=== PATIENT | female | born 1950 | race Caucasian/White ===

== ENCOUNTER → 2016-11-09 | Outpatient (CLI) | payer BC ==
--- NOTE | 2016-11-16 10:34 | MAM ---
EXAM DESCRIPTION: 3D Diagnostic, Bilateral CLINICAL HISTORY: 66 yearsFemaleSCREENING. Postmenopausal. COMPARISON: Baseline study at this facility. No prior reports available. TECHNIQUE: Bilateral CC and MLO projection full-field images, 3-D tomosynthesis digital mammographic technique. Also bilateral synthesized CC/ MLO full-field images. CAD not utilized. FINDINGS: The breast parenchymal density pattern is: Scattered areas of fibroglandular density. No skin thickening or nipple retraction intramammary lymph nodes in the posterior third of the upper-outer quadrant of the left breast and the posterior third of the upper inner quadrant of the same breast. Bilateral solitary microcalcifications. No focal, stellate mass or density, focal asymmetry , and no suspicious microcalcifications bilaterally. IMPRESSION: BI-RADS CATEGORY: 2 - BENIGN FINDINGS. FOLLOW UP: Routine digital bilateral screening, one year interval from October 2016. Written communication explaining the findings and follow-up, will be mailed to the patient and referring health care provider. According to the [employer], yearly mammograms are recommended starting at age 40 and continuing as long as a woman is in good health. Any breast change noted on a breast self-exam should be reported promptly to the patient's healthcare provider. Breast MRI is recommended for women with an approximately 20-25% or greater lifetime risk of breast cancer, including women with a strong family history of breast or ovarian cancer and women who have been treated for Hodgkin's disease. A negative mammographic report should not delay tissue diagnosis in patients with significant clinical history or physical findings. Extremely dense breast tissue limits the sensitivity of digital mammography. Electronically signed by: Fredrick Tripp MD 11/16/2016 10:33 AM CDT Workstation: [id number]
== END ==
LOC: MAMMO 10:18
PROVIDERS: ATTEND Family Medicine
DX: Z12.31 Encounter for screening mammogram for malignant neoplasm of breast (principal)

== ENCOUNTER → 2017-03-28 | Outpatient (CLI) | payer BC ==
--- NOTE | 2017-03-30 10:15 | CT ---
EXAM DESCRIPTION: Chest w/Contrast CT. CLINICAL HISTORY: COUGH COMPARISON: None. TECHNIQUE: Spiral-axial scans at 5.0 mm intervals through the lungs and thorax with IV contrast. Oral and sagittal 2.0 Mm reconstructions. No adverse reactions. Total Exam DLP: 554.59 mGy-cm. This exam was performed according to our departmental dose-optimization program which includes automated exposure control, adjustment of the mA and/or kV according to patient size and/or use of iterative reconstruction technique; to reduce radiation dose to as low as reasonably achievable (ALARA). FINDINGS: No abnormal nodules or infiltrates. No masses. No pleural effusion or pneumothorax. Left lobe of the thyroid gland is visualized with enhancement right lobe is not well seen. No soft tissue masses at the base of the neck. No axillary adenopathy. No soft tissue masses or enlarged lymph nodes in the mediastinum and hilum. Small hiatal hernia. No free fluid or free air in the included subdiaphragmatic peritoneal space. Included kidneys show a large cyst bilaterally. Normal size and enhancement of the adrenal glands and spleen. No definite gallbladder not seen. Included pancreas unremarkable. Exaggerated thoracic kyphosis with spondylosis at multiple levels and mild dextroscoliosis. Spondylosis in the included segments of the lower cervical spine and upper lumbar spine. No bone destruction. IMPRESSION: 1. Lungs are well-inflated with no infiltrates or nodules. No pleural effusion or pneumothorax. 2. No adenopathy in the hilum mediastinum. No soft tissue masses. 3. Diffuse spondylosis lower cervical spine to the upper lumbar spine with exaggerated thoracic kyphosis. No compression type fractures. 4. Partial visualization of the bilateral kidneys showing large cysts. Electronically signed by: Fredrick Tripp MD 03/30/2017 10:14 AM [facility]
== END ==
LOC: LAB.O 15:16
PROVIDERS: ATTEND Family Medicine
DX: R05 Cough (principal)

== ENCOUNTER 2017-03-31 21:59 | Emergency (ER) | payer BC ==
[2017-03-31 22:14] VITALS: TEMP 97.6; O2SAT 96
[2017-03-31] MEDS ORDERED: SODIUM CHLORIDE 0.9% 1000ML 1,000 ML IVS ONE (22:25)
[2017-03-31] MEDS ORDERED: METOCLOPRAMIDE HCL INJ 10 MG/2 ML VIAL IV ONE (22:26)
[2017-03-31] MEDS ORDERED: diphenhydrAMINE HCL 50 MG/ML VIAL IV ONE (22:26)
[2017-03-31] MEDS ORDERED: KETOROLAC TROMETHAMINE INJ 30 MG/ML VIAL IV ONE (22:26)
--- NOTE | 2017-03-31 22:27 | ED.PDOC ---
History of Present Illness - General Chief Complaint: General Stated Complaint: visual disturbances Time Seen by Provider: 03/31/17 22:25 Source: patient, RN notes reviewed, Vital Signs reviewed Additional Information: Pt reports some bright and dark spots when looking with right eye since this am. Otherwise, no symptoms. She was concerned for a retinal detachment. - History of Present Illness Timing/Duration: 24 hours Improving Factors: nothing Worsening Factors: nothing Associated Symptoms: denies symptoms Allergies/Adverse Reactions: Allergies NO KNOWN ALLERGY Allergy (Verified 03/31/17 22:10) Home Medications: Ambulatory Orders Cetirizine HCl [ZyrTEC] 10 mg PO BID 03/31/17 Dexlansoprazole [Dexilant] 60 mg PO DAILY 03/31/17 Fluticasone-Salmeterol [Advair Hfa] 2 aer IN BID 03/31/17 Gabapentin [Neurontin] 300 mg PO BID 03/31/17 Guaifenesin [Eq Mucus ER] 600 mg PO 0700 03/31/17 Mometasone Furoate (Inhalation [Asmanex 120 Metered Doses] 220 mcg IN BID Verapamil HCl [Verapamil HCl Sr] 240 mg PO BEDTIME 03/31/17 Zafirlukast [Accolate] 20 mg PO BID 03/31/17 Review of Systems - Review of Systems Constitutional: States: no symptoms reported EENTM: States: see HPI Respiratory: States: no symptoms reported Cardiology: States: no symptoms reported Gastrointestinal/Abdominal: States: no symptoms reported Genitourinary: States: no symptoms reported Musculoskeletal: States: no symptoms reported Skin: States: no symptoms reported Neurological: States: no symptoms reported Endocrine: States: no symptoms reported Hematologic/Lymphatic: States: no symptoms reported Past Medical History (General) - Patient Medical History Hx Seizures: No Hx Stroke: No Hx Dementia: No Hx Asthma: Yes Hx of COPD: Yes Hx Cardiac Disorders: No Hx Congestive Heart Failure: No Hx Pacemaker: No Hx Hypertension: Yes Hx Thyroid Disease: No Hx Diabetes: No Hx Gastroesophageal Reflux: Yes Hx Renal Disease: No Hx Cancer: No Hx of HIV: No Hx Hepatitis C: No Hx MRSA: No Surgical History: tonsillectomy, Hysterectomy - Vaccination History Hx Tetanus, Diphtheria Vaccination: Yes Hx Influenza Vaccination: Yes Hx Pneumococcal Vaccination: Yes Immunizations Up to Date: Yes - Social History Hx Tobacco Use: No Hx Alcohol Use: Yes Family Medical History - Family History Mother Family History: No Known Living Status: Unknown Physical Exam - Physical Exam General Appearance: Alert, Comfortable, No apparent distress, Well Developed, Well Groomed, Well Hydrated, Well Nourished Eye Exam: bilateral normal Ears, Nose, Throat: normal ENT inspection, normal pharynx Neck: non-tender, full range of motion, supple Respiratory: no respiratory distress, no accessory muscle use Cardiovascular/Chest: regular rate, rhythm Extremity: normal range of motion, non-tender, normal inspection 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 03/31/17 23:41 BP did come down with rest and REIS cocktail. - Results/Orders Results/Orders: 03/31/17 22:45 ESR [ERYTHROCYTE SEDIMENTATION RATE] Stat Laboratory Results - last 24 hr 03/31/17 03/31/17 03/31/17 22:45 22:45 22:45 WBC 5.1 RBC 4.58 Hgb 14.1 Hct 41.1 MCV 89.8 MCH 30.7 MCHC 34.2 RDW 13.5 Plt Count 236 MPV 7.7 Absolute Neuts (auto) 3.20 Absolute Lymphs (auto) 1.30 Absolute Monos (auto) 0.60 Absolute Eos (auto) 0.10 Absolute Basos (auto) 0.00 Neutrophils % 61.4 Lymphocytes % 25.2 Monocytes % 10.9 H Eosinophils % 2.0 Basophils % 0.5 Sodium 142 Potassium 3.8 Chloride 106 Carbon Dioxide 29 Anion Gap 10.8 L BUN 18 Creatinine 0.90 BUN/Creatinine Ratio 20.0 Random Glucose 89 Serum Osmolality 284.5 Calcium 9.1 Total Bilirubin 0.2 AST 52 H ALT 17 Alkaline Phosphatase 57 C-Reactive Protein 0.7 Serum Total Protein 6.7 Albumin 3.9 Globulin 2.8 Albumin/Globulin Ratio 1.4 Departure - Departure Clinical Impression: Transient visual disturbance Time of Disposition: 23:48 Disposition: Discharge to Home or Self Care Condition: Good Departure Forms: ED Discharge - Pt. Copy, Patient Portal Self Enrollment Referrals: Michel Ware MD [Primary Care Provider] - 1-5 Days Home Medications: Ambulatory Orders Cetirizine HCl [ZyrTEC] 10 mg PO BID 03/31/17 Dexlansoprazole [Dexilant] 60 mg PO DAILY 03/31/17 Fluticasone-Salmeterol [Advair Hfa] 2 aer IN BID 03/31/17 Gabapentin [Neurontin] 300 mg PO BID 03/31/17 Guaifenesin [Eq Mucus ER] 600 mg PO 0700 03/31/17 Mometasone Furoate (Inhalation [Asmanex 120 Metered Doses] 220 mcg IN BID Verapamil HCl [Verapamil HCl Sr] 240 mg PO BEDTIME 03/31/17 Zafirlukast [Accolate] 20 mg PO BID 03/31/17 Additional Instructions: Return to ER if symptoms recur. Follow-up with Primary Care Provider within 5 to 7 days to reassess. Ensure yearly Assorter assessment with dilated retinal exam.
[2017-03-31 23:50] VITALS: BP 149/92
== END 2017-03-31 23:50 | disposition home or self-care (01) ==
LOC: ER 21:59
DX: H53.8 Other visual disturbances (principal); J44.9 Chronic obstructive pulmonary disease, unspecified; I10 Essential (primary) hypertension
CPT/HCPCS: 36415; 80053; 85025; 85651; 86140; J1200; J1885; J2765; J7030

== ENCOUNTER → 2017-10-04 | Outpatient (CLI) | payer MEDICARE, OTHER | LOC: GMAJ 14:40 | PROVIDERS: ATTEND Family Medicine | DX: R21 Rash and other nonspecific skin eruption (principal) ==

== ENCOUNTER → 2017-12-12 | Outpatient (CLI) | payer MEDICARE, OTHER ==
--- NOTE | 2017-12-12 15:37 | US ---
EXAM DESCRIPTION: Breast,Left: Ultrasound CLINICAL HISTORY: 67 yearsFemaleABD MAMMO COMPARISON: Digital diagnostic mammogram left breast on this visit. TECHNIQUE: Transcutaneous scanning of the left breast utilizing franco-scale and Doppler modes. Scanning performed by the civil engineer's aide and Dr. Tripp. FINDINGS: Scanning of the upper outer quadrant of the left breast with emphasis on the 1000 clock position, 5 cm from the nipple. Hypoechoic mass with smooth margins and minimal central echogenicity measuring 6.8 x 5.6 mm. Parallel orientation with minimal posterior shadowing. Nonvascular. Most likely a lymph node. No other distinct solid mass. No distinct cyst. No parenchymal edema or large calcifications. No oral lying skin changes. No abnormal vascularity. IMPRESSION: 1. Bi-Rads Category 2: Benign. 2. Please refer to digital diagnostic mammography of the left breast on this visit. The FINDINGS and the FOLLOW-UP plan were reviewed in person with the patient after the examination. Written communication explaining the IMPRESSION and FOLLOW-UP will be mailed to the patient and referring care provider. Electronically signed by: Fredrick Tripp MD 12/12/2017 3:36 PM CDT
--- NOTE | 2017-12-13 11:34 | MAM ---
EXAM DESCRIPTION: 3D Diagnostic, Left: Digital Mammography CLINICAL HISTORY: 67 yearsFemaleABNORMAL MAMMO focal asymmetry medial third of the left breast upper outer quadrant at 930 clock position, 5 cm from the nipple.. COMPARISON: Screening bilateral digital breast tomosynthesis 11/20/2017.. . Targeted left breast ultrasound following this examination. TECHNIQUE: Left breast LM projection full-field images, digital mammographic tomosynthesis technique. Left breast full-field 2-D MLO projection. CAD not utilized. FINDINGS: The breast parenchymal density pattern is: Scattered areas of fibroglandular density. No skin thickening or nipple retraction stable nodular density lateral left breast. Focal asymmetry not as well seen on the left lateral medial tomosynthesis images. Ultrasound: Scanning of the upper outer quadrant of the left breast with emphasis on the 1000 clock position, 5 cm from the nipple. Hypoechoic mass with smooth margins and minimal central echogenicity measuring 6.8 x 5.6 mm. Parallel orientation with minimal posterior shadowing. Nonvascular. Most likely a lymph node. No other distinct solid mass. No distinct cyst. No parenchymal edema or large calcifications. No oral lying skin changes. No abnormal vascularity. IMPRESSION: Benign exam BIRAD CATEGORY: 2 BENIGN FINDINGS RECOMMENDATIONS: FOLLOW UP: Return to routine digital bilateral screening, one year interval from November 2017. The FINDINGS and the FOLLOW-UP plan were reviewed in person with the patient after the examination. Written communication explaining the IMPRESSION and FOLLOW-UP will be mailed to the patient and referring care provider. According to the [employer], yearly mammograms are recommended starting at age 40 and continuing as long as a woman is in good health. Any breast change noted on a breast self-exam should be reported promptly to the patient's healthcare provider. Breast MRI is recommended for women with an approximately 20-25% or greater lifetime risk of breast cancer, including women with a strong family history of breast or ovarian cancer and women who have been treated for Hodgkin's disease. A negative mammographic report should not delay tissue diagnosis in patients with significant clinical history or physical findings. Extremely dense breast tissue limits the sensitivity of digital mammography. Electronically signed by: Fredrick Tripp MD 12/13/2017 11:32 AM CDT
== END ==
LOC: MAMMO 11:08
PROVIDERS: ATTEND Family Medicine
DX: R92.8 Other abnormal and inconclusive findings on diagnostic imaging of breast (principal)
CPT/HCPCS: 76641; 77065; G0279

== ENCOUNTER → 2018-01-29 | Outpatient (CLI) | payer MEDICARE, OTHER | LOC: GMAHI 16:48 | PROVIDERS: ATTEND Nurse Practitioner Family | DX: N30.00 Acute cystitis without hematuria (principal) ==

== ENCOUNTER → 2018-05-09 | Outpatient (CLI) | payer MEDICARE, OTHER | LOC: GMAJ 14:19 | PROVIDERS: ATTEND Family Medicine | DX: R94.5 Abnormal results of liver function studies (principal) ==

== ENCOUNTER → 2018-05-13 | Outpatient (CLI) | payer MEDICARE, OTHER ==
--- NOTE | 2018-05-13 12:13 | US ---
EXAM DESCRIPTION: Abdomen,Complete: Ultrasound. CLINICAL HISTORY: R94.5. Prior cholecystectomy. COMPARISON: None Available. TECHNIQUE: Transabdominal scannin-dimensional and Doppler modes. FINDINGS: Gallbladder: Surgically removed. No fluid in the gallbladder fossa. Nontender during transducer pressure. Common bile duct: 5 mm is normal caliber. Liver: Long axis right lobe 14.0 cm. Normal echogenicity. Normal caliber ducts. Normal caliber portal vein with hepatopedal flow. Smooth capsule with no ascites. Pancreas: Included segments normal echogenicity. Duct not seen.. Abdominal aorta: Normal caliber from the proximal segment to the distal bifurcation. IVC: visualized; normal caliber. Spleen normal echogenicity; long axis measurement is 8.7 cm. Right kidney: 11.7 cm long axis. 2 anechoic cysts with well-defined yusuf and posterior acoustic enhancement upper pole right kidney 1.2 and 1.9 cm diameter versus septated 2.0 cm cyst. 5.7 x 4.7 x 4.4 cm thin-walled circumscribed anechoic cyst with posterior acoustic enhancement and wall thickening/calcification. Not vascular. No hydronephrosis or perinephric fluid. Left kidney: 12 cm long axis. Anechoic thin-walled circumscribed 7 x 7.2 x 6.5 cm cyst. No hydronephrosis or perinephric fluid.. IMPRESSION: 1. Gallbladder surgically removed. No fluid in the gallbladder fossa. Nontender. 2. Normal ultrasound of the liver. Pancreas is unremarkable. 3. Right kidney but multiple cysts. Largest cyst in the mid kidney with wall thickening/calcification. Nonvascular. No internal echoes. 4. Simple 7.2 cm cyst left kidney, otherwise unremarkable. Normal caliber of the IVC and abdominal aorta. Spleen is unremarkable. Electronically signed by: Fredrick Tripp MD 05/13/2018 12:12 PM [employer]
== END ==
LOC: US 08:17
PROVIDERS: ATTEND Family Medicine
DX: R94.5 Abnormal results of liver function studies (principal); Z90.49 Acquired absence of other specified parts of digestive tract; N28.1 Cyst of kidney, acquired

== ENCOUNTER → 2018-05-27 | Outpatient (CLI) | payer MEDICARE, OTHER ==
--- NOTE | 2018-05-27 12:08 | CT ---
EXAM DESCRIPTION: Abdomen w/o Contrast CLINICAL HISTORY: 67 years, Female, CYST OF KIDNEY COMPARISON: Ultrasound abdomen May 13, 2018, CT chest March 28, 2017 TECHNIQUE: CT of the abdomen is performed according to our non contrast protocol. FINDINGS: The lung bases are clear. Heart size is normal. Moderate pericardial effusion is present which is new compared to previous study. Small hiatal hernia behind the heart. Liver, spleen, and pancreas are unremarkable. Adrenal glands appear normal. The right kidney contains a cyst projecting off the upper pole which measures 2.6 cm in diameter and 12 Hounsfield units in density. Another small cyst anteriorly measures 1 cm. The larger cyst in the anterolateral mid right kidney measures 5.8 cm. Question small hemorrhagic cyst posterior inferior right kidney 8 mm. Upper pole and larger lateral cysts were seen on previous study. Small calculus in the posterior mid to lower right kidney measures 2 mm. No obstructive uropathy. The left kidney is anomalously rotated. Large cystic lesion of the inferior aspect of the left kidney measures 7.7 cm in diameter with a density of 9 Hounsfield units. Previously this measured approximately 6.8 cm. No left renal stones. Small bowel loops appear normal in caliber with normal wall thickness. There is no lymphadenopathy, inflammation, or free fluid observed. Mild leftward scoliotic curvature of the lumbar spine. Coronal and sagittal reformatted images confirm the findings. Advanced degenerative disc disease is seen in the lower thoracic and lumbar spine IMPRESSION: 2 mm nonobstructing right renal calculus. Bilateral renal cysts. Small pericardial effusion. This exam was performed according to our departmental dose-optimization program, which includes automated exposure control, adjustment of the mA and/or kV according to patient size and/or use of iterative reconstruction technique. Total DLP equals 407.76 mGycm. 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
== END ==
LOC: CT 08:05
PROVIDERS: ATTEND Family Medicine
DX: N28.1 Cyst of kidney, acquired (principal); N20.0 Calculus of kidney; I31.3 Pericardial effusion (noninflammatory)

== ENCOUNTER 2018-11-04 21:17 | Emergency (ER) | payer MEDICARE, OTHER ==
[2018-11-04 21:33] VITALS: TEMP 97.4; O2SAT 99
--- NOTE | 2018-11-04 21:49 | RAD ---
EXAM: XR Left Foot, 2 Views CLINICAL HISTORY: 68 years old and is Female; twisted foot TECHNIQUE: Frontal and lateral views of the left foot. COMPARISON: No relevant prior studies available. FINDINGS: Limitations: None. Bones/joints: Minimal narrowing of the interphalangeal joints. No fracture. No dislocation. Soft tissues: Unremarkable. No radiopaque foreign body. IMPRESSION: No acute findings. Electronically signed by: Rebecca Littlejohn MD 11/04/2018 9:46 PM CDT
--- NOTE | 2018-11-04 21:54 | ED.PDOC ---
History of Present Illness - General Chief Complaint: Lower Extremity Injury Stated Complaint: rolled left ankle causing pain Time Seen by Provider: 11/04/18 21:31 Source: patient Exam Limitations: no limitations - History of Present Illness Initial Comments: the patient is a 68-year-old female presenting to the emergency room secondary to left lateral foot pain after twisting her foot earlier in the day. She always has some mild chronic peripheral edema according to her since starting a new blood pressure medicine. Pain is lateral on the foot. There is pain over the fifth metatarsal. No obvious deformity otherwise. No pain over the medial or lateral malleolus. No pain anterior to the ankle. No obvious laxity of the ankle. She does appear to be neurovascularly preserved. Timing/Duration: 4-6 hours Severity: mild Improving Factors: immobilization Worsening Factors: movement Associated Symptoms: denies symptoms Allergies/Adverse Reactions: Allergies NO KNOWN ALLERGY Allergy (Verified 03/31/17 22:10) Home Medications: Ambulatory Orders Cetirizine HCl [ZyrTEC] 10 mg PO BID 03/31/17 Dexlansoprazole [Dexilant] 60 mg PO DAILY 03/31/17 Fluticasone-Salmeterol [Advair Hfa] 2 aer IN BID 03/31/17 Gabapentin [Neurontin] 300 mg PO BID 03/31/17 Guaifenesin [Eq Mucus ER] 600 mg PO 0700 03/31/17 Mometasone Furoate (Inhalation [Asmanex 120 Metered Doses] 220 mcg IN BID 1 06/01/16 Verapamil HCl [Verapamil HCl Sr] 240 mg PO BEDTIME 03/31/17 Zafirlukast [Accolate] 20 mg PO BID 03/31/17 Review of Systems - Review of Systems Constitutional: States: no symptoms reported EENTM: States: no symptoms reported Respiratory: States: no symptoms reported Cardiology: States: no symptoms reported Gastrointestinal/Abdominal: States: no symptoms reported Genitourinary: States: no symptoms reported Musculoskeletal: States: see HPI Skin: States: no symptoms reported Neurological: States: no symptoms reported Endocrine: States: no symptoms reported All other Systems: No Change from Baseline Past Medical History (General) - Patient Medical History Hx Seizures: No Hx Stroke: No Hx Dementia: No Hx Asthma: Yes Hx of COPD: Yes Hx Cardiac Disorders: No Hx Congestive Heart Failure: No Hx Pacemaker: No Hx Hypertension: Yes Hx Thyroid Disease: No Hx Diabetes: No Hx Gastroesophageal Reflux: Yes Hx Renal Disease: No Hx Cancer: No Hx of HIV: No Hx Hepatitis C: No Hx MRSA: No Surgical History: tonsillectomy, Hysterectomy, other - Vaccination History Hx Tetanus, Diphtheria Vaccination: Yes Hx Influenza Vaccination: Yes Hx Pneumococcal Vaccination: Yes - Social History Hx Tobacco Use: No Hx Alcohol Use: Yes Family Medical History - Family History Mother Family History: No Known Living Status: Unknown Physical Exam - Physical Exam General Appearance: Alert, Comfortable, No apparent distress Eye Exam: bilateral normal Ears, Nose, Throat: hearing grossly normal, normal ENT inspection Neck: full range of motion, supple Respiratory: no respiratory distress, no accessory muscle use Cardiovascular/Chest: normal peripheral pulses, other - regular rate Peripheral Pulses: radial,right: 2+, radial,left: 2+, dorsalis pedis,right: 2+, dorsalis pedis,left: 2+ Rectal Exam: deferred Back Exam: no CVA tenderness, no vertebral tenderness Extremity: normal range of motion, no calf tenderness, normal capillary refill, pedal edema - +1 edema to bilateral lower extremities little more on the leftthan right 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 Progress - Progress Progress: 11/04/18 21:55 the patient is a 68-year-old female presenting to the emergency room secondary to twisting her left foot earlier today. She appears to have sustained a lateral foot sprain. No evidence of fracture dislocation was seen on x-ray. She needs to ambulate carefully prevent further injury and preferably wear some form of a hard soled shoe for the next few weeks. Motrin can be used for discomfort. ER warnings were given. Keep routine follow-up with primary care doctor. Departure - Departure Clinical Impression: Sprain of left foot Qualifiers: Encounter type: initial encounter Qualified Code(s): S93.602A - Unspecified sprain of left foot, initial encounter Disposition: Discharge to Home or Self Care Condition: Fair Departure Forms: ED Discharge - Pt. Copy, Patient Portal Self Enrollment Instructions: Foot Sprain (DC) Diet: regular diet Activity: increase activity as tolerated Referrals: Michel Ware MD [Primary Care Provider] - 1-2 Weeks Home Medications: Ambulatory Orders Cetirizine HCl [ZyrTEC] 10 mg PO BID 03/31/17 Dexlansoprazole [Dexilant] 60 mg PO DAILY 03/31/17 Fluticasone-Salmeterol [Advair Hfa] 2 aer IN BID 03/31/17 Gabapentin [Neurontin] 300 mg PO BID 03/31/17 Guaifenesin [Eq Mucus ER] 600 mg PO 0700 03/31/17 Mometasone Furoate (Inhalation [Asmanex 120 Metered Doses] 220 mcg IN BID 03/31/17 Verapamil HCl [Verapamil HCl Sr] 240 mg PO BEDTIME 03/31/17 Zafirlukast [Accolate] 20 mg PO BID 03/31/17 Additional Instructions: the patient is a 68-year-old female presenting to the emergency room secondary to twisting her left foot earlier today. She appears to have sustained a lateral foot sprain. No evidence of fracture dislocation was seen on x-ray. She needs to ambulate carefully prevent further injury and preferably wear some form of a hard soled shoe for the next few weeks. Motrin can be used for discomfort. ER warnings were given. Keep routine follow-up with primary care doctor.
[2018-11-04] MEDS ORDERED: ACETAMINOPHEN-CAFF-BUTALBITAL 1 EA TAB PO ONE (21:57)
[2018-11-04 22:12] VITALS: BP 142/90
== END 2018-11-04 22:12 | disposition home or self-care (01) ==
LOC: ER 21:17
DX: S93.602A Unspecified sprain of left foot, initial encounter (principal); J44.9 Chronic obstructive pulmonary disease, unspecified; I10 Essential (primary) hypertension; K21.9 Gastro-esophageal reflux disease without esophagitis; X50.9XXA Other and unspecified overexertion or strenuous movements or postures, initial encounter; Z79.899 Other long term (current) drug therapy; Y92.9 Unspecified place or not applicable

== ENCOUNTER → 2018-12-25 | Outpatient (CLI) | payer MEDICARE, OTHER ==
--- NOTE | 2018-12-30 09:33 | MAM ---
EXAM DESCRIPTION: 3D Screening BILATERAL : Digital Mammography. CLINICAL HISTORY: 68 years Female Screening . No complaints. No personal or family history of breast cancer. Childbirth. Postmenopausal. Currently on HRT. Lifetime risk of developing breast cancer (Tyrer-Cuzick model)(%): 6.7. COMPARISON: Bilateral screening digital breast tomosynthesis 11/20/2017.. Diagnostic tomosynthesis and ultrasound left breast 12/12/2017. TECHNIQUE: Bilateral CC and MLO projection full-field images, digital tomosynthesis mammographic technique. Bilateral digital 2-D full-field MLO images. CAD not available for tomosynthesis or 2-D images. FINDINGS: The breast parenchymal density pattern is: Scattered areas of fibroglandular density. No skin thickening or nipple retraction. Bilateral solitary microcalcifications. Bilateral skin calcifications. Stable left breast intramammary lymph nodes. No new focal, stellate mass or density, focal asymmetry , and no suspicious microcalcifications bilaterally. Stable mammograms compared to prior study. IMPRESSION: Benign exam. BIRAD CATEGORY: 2 BENIGN FINDINGS. RECOMMENDATIONS: FOLLOW UP: Routine digital bilateral mammographic screening, one year interval from November 2017. Written communication explaining the IMPRESSION and follow-up, will be mailed to the patient and referring health care provider. According to the [employer], yearly mammograms are recommended starting at age 40 and continuing as long as a woman is in good health. Any breast change noted on a breast self-exam should be reported promptly to the patient's healthcare provider. Breast MRI is recommended for women with an approximately 20-25% or greater lifetime risk of breast cancer, including women with a strong family history of breast or ovarian cancer and women who have been treated for Hodgkin's disease. A negative mammographic report should not delay tissue diagnosis in patients with significant clinical history or physical findings. Extremely dense breast tissue limits the sensitivity of digital mammography. Electronically signed by: Fredrick Tripp MD 12/30/2018 9:31 AM CDT
== END ==
LOC: MAMMO 16:05
PROVIDERS: ATTEND Family Medicine
DX: Z12.31 Encounter for screening mammogram for malignant neoplasm of breast (principal)

== ENCOUNTER 2019-05-18 16:21 | Emergency (ER) | payer MEDICARE, OTHER ==
[2019-05-18] MEDS ORDERED: SODIUM CHLORIDE 0.9% (FLUSH) 10 ML SYG IV PRN (16:43)
[2019-05-18 16:44] VITALS: TEMP 97.8
--- NOTE | 2019-05-18 18:03 | RAD ---
EXAM: Chest,1 View CLINICAL INDICATION: 68-year-old female with chest pain. TECHNIQUE: Single view, AP portable chest was obtained. COMPARISON: None. FINDINGS: Mildly prominent cardiac and mediastinal silhouette. Heart size is mildly prominent. Tortuous atherosclerotic thoracic aorta. Round opacity overlying the projection of the cardiac silhouette suggestive of hiatal hernia. Lungs are clear without focal opacity, pneumothorax or pleural effusions. The visualized bones reveal severe lumbar levo scoliosis. IMPRESSION: 1. No acute pulmonary abnormalities. 2. Mildly prominent cardiac silhouette. 3. Suspected moderate hiatal hernia. 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
[2019-05-18 18:10] VITALS: O2SAT 97
--- NOTE | 2019-05-18 19:15 | ED.PDOC ---
History of Present Illness - General Chief Complaint: General Stated Complaint: Anxiety, worried after episode of chest pressure Time Seen by Provider: 05/18/19 16:43 - History of Present Illness Initial Comments: Pt had chest pressure in the morning lasting for few mins after having anxiety that she might have heart problem , no sob or nausea or vomiting , Severity: moderate Improving Factors: nothing Worsening Factors: nothing Associated Symptoms: chest pain Allergies/Adverse Reactions: Allergies NO KNOWN ALLERGY Allergy (Verified 03/31/17 22:10) Home Medications: Ambulatory Orders Cetirizine HCl [ZyrTEC] 10 mg PO BID 03/31/17 Dexlansoprazole [Dexilant] 60 mg PO DAILY 03/31/17 Gabapentin [Neurontin] 300 mg PO BID 03/31/17 Guaifenesin [Eq Mucus ER] 600 mg PO DAILY 03/31/17 Zafirlukast [Accolate] 20 mg PO BID 03/31/17 Review of Systems - Review of Systems Constitutional: States: no symptoms reported EENTM: States: no symptoms reported Respiratory: States: no symptoms reported Cardiology: States: see HPI Gastrointestinal/Abdominal: States: no symptoms reported Genitourinary: States: no symptoms reported Musculoskeletal: States: no symptoms reported Skin: States: no symptoms reported Neurological: States: no symptoms reported Endocrine: States: no symptoms reported Hematologic/Lymphatic: States: no symptoms reported Past Medical History (General) - Patient Medical History Hx Seizures: No Hx Stroke: No Hx Dementia: No Hx Asthma: Yes Hx of COPD: Yes Hx Cardiac Disorders: No Hx Congestive Heart Failure: No Hx Pacemaker: No Hx Hypertension: Yes Hx Thyroid Disease: Yes Hx Diabetes: No Hx Gastroesophageal Reflux: Yes Hx Renal Disease: No Hx Cancer: No Hx of HIV: No Hx Hepatitis C: No Hx MRSA: No Surgical History: other - Vaccination History Hx Tetanus, Diphtheria Vaccination: Yes Hx Influenza Vaccination: Yes - 2019 Hx Pneumococcal Vaccination: Yes - Social History Hx Tobacco Use: Yes - Quit 2008 Hx Alcohol Use: Yes - Social use Hx Substance Use: Yes - Infrequent marijuana use Family Medical History - Family History Mother Family History: No Known Living Status: Unknown Physical Exam - Physical Exam General Appearance: Alert, Comfortable Ears, Nose, Throat: hearing grossly normal, normal ENT inspection, normal pharynx Neck: non-tender, full range of motion, supple Respiratory: lungs clear, normal breath sounds, no respiratory distress, no accessory muscle use Cardiovascular/Chest: regular rate, rhythm, no edema, no gallop, no JVD Back Exam: normal inspection Extremity: normal range of motion, non-tender, normal inspection, no pedal edema 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: 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 as tested, no motor/sensory deficits, alert, normal mood/affect, oriented x 3 Skin Exam: normal color, warm/dry Progress - Results/Orders Results/Orders: Abnormal Lab Results 05/18/19 05/18/19 16:54 16:54 WBC 4.1 L Monocytes % 9.7 H D-Dimer, Quantitative < 100 L Anion Gap 10.7 L AST 79 H 05/18/19 16:43 IV Care:Saline Lock per Protoc QSHIFT Telemetry ONCE Sodium Chloride 0.9% (Flush) [Saline Flush Syringe] 3 ml IV PRN PRN 05/18/19 16:45 EKG STAT 05/19/19 09:00 Pulse Ox Daily Laboratory Results - last 24 hr 05/18/19 05/18/19 05/18/19 16:54 16:54 18:27 WBC 4.1 L RBC 4.55 Hgb 13.8 Hct 41.1 MCV 90.3 MCH 30.3 MCHC 33.6 RDW 13.3 Plt Count 189 MPV 7.6 Absolute Neuts (auto) 2.50 Absolute Lymphs (auto) 1.10 Absolute Monos (auto) 0.40 Absolute Eos (auto) 0.10 Absolute Basos (auto) 0.00 Neutrophils % 61.2 Lymphocytes % 27.0 Monocytes % 9.7 H Eosinophils % 1.6 Basophils % 0.5 PT 9.4 INR < 1.00 PTT (SP) 26.9 D-Dimer, Quantitative < 100 L Sodium 138 Potassium 3.7 Chloride 102 Carbon Dioxide 29 Anion Gap 10.7 L BUN 17 Creatinine 0.87 BUN/Creatinine Ratio 19.5 Random Glucose 93 Serum Osmolality 276.9 Calcium 9.5 Magnesium 1.9 Total Bilirubin 0.4 Direct Bilirubin < 0.1 Indirect Bilirubin 0.3 AST 79 H ALT 14 Alkaline Phosphatase 60 Creatine Kinase 137 CK-MB (CK-2) 3.4 CK-MB (CK-2) % Not Reportable Troponin I < 0.02 < 0.02 Serum Total Protein 6.7 Albumin 4.0 - EKG/XRAY/CT EKG: Sinus Departure - Departure Clinical Impression: Chest pressure, Anxiety Time of Disposition: 19:17 Disposition: Discharge to Home or Self Care Condition: Good Departure Forms: ED Discharge - Pt. Copy, Patient Portal Self Enrollment Instructions: Anxiety, Adult (DC) Diet: resume usual diet Activity: increase activity as tolerated, walking as tolerated Referrals: Michel Ware MD [Primary Care Provider] - 1-2 Weeks Home Medications: Ambulatory Orders Cetirizine HCl [ZyrTEC] 10 mg PO BID 03/31/17 Dexlansoprazole [Dexilant] 60 mg PO DAILY 03/31/17 Gabapentin [Neurontin] 300 mg PO BID 03/31/17 Guaifenesin [Eq Mucus ER] 600 mg PO DAILY 03/31/17 Zafirlukast [Accolate] 20 mg PO BID 03/31/17
[2019-05-18 19:30] VITALS: BP 141/116
== END 2019-05-18 19:31 | disposition home or self-care (01) ==
LOC: ER 16:21
DX: R07.89 Other chest pain (principal); F41.9 Anxiety disorder, unspecified; J44.9 Chronic obstructive pulmonary disease, unspecified; I10 Essential (primary) hypertension; E07.9 Disorder of thyroid, unspecified; K21.9 Gastro-esophageal reflux disease without esophagitis; Z87.891 Personal history of nicotine dependence; Z79.899 Other long term (current) drug therapy